=== PATIENT | male | born 1955 | race Caucasian/White ===

== ENCOUNTER 2022-12-30 13:47 | Outpatient (CLI) | payer MEDICARE, SELFPAY ==
--- NOTE | 2022-12-30 14:30 | CRLHL7_ITS ---
For Patients: As a result of the Century Cures Act, medical imaging exams and procedure reports are released immediately into your electronic medical record. You may view this report before your referring provider. If you have questions, please contact your health care provider. DXA BONE MINERAL DENSITY STUDY Reason for exam: Primary malignant neoplasm of prostate. Screening. Current height (in): 69. Weight (lb): 270. Menopause age: N/A Ethnicity: White. 1. Have you had a previous hip or vertebral fracture? No. 2. Have you had any fractures during your adult life which did not result from significant trauma (e.g., auto accident)? No. 3. Did either of your parents have a hip fracture? No. 4. Do you smoke? No. 5. Have you ever taken Glucocorticoids? No. 6. Do you have rheumatoid arthritis? No. 7. Do you have secondary osteoporosis? No. 8. Do you drink 3 or more alcoholic drinks per day? No. 9. Are you being treated for osteoporosis? No. 10. Have you ever taken any of the following medications: Actonel, Evista, Fosamax, Miacalcin, Reclast, Boniva, Forteo, HRT (i.e., estrogen/hormone therapy), Protelos, Prolia, Vitamin D, Calcium, other ??? please specify. ANSWER: No. 11. Do you have any of the following medical conditions: Anorexia or bulimia, asthma or emphysema, end stage renal disease, hyperparathyroidism, any seizure disorders, cancer, inflammatory bowel diseases, hysterectomy, other ??? please specify. ANSWER: Yes, cancer. 12. What was your maximum height (inches)? 69. 13. Do you perform weight bearing exercise regularly? No. 14. Do you regularly consume dairy products? No. 15. Do you drink caffeinated beverages? Yes. TECHNIQUE: Bone mineral density study was performed using the [employer]. FINDINGS: The results of the study expressed as bone mineral density (BMD) are as follows: Lumbar spine L2 to L4: BMD: 1.227 g/cm2. T-score: 1.0. Z-score: 1.9 Neck Left: BMD: 0.754 g/cm2. T-score: -1.3. Z-score: -0.1 Right: BMD: 0.737 g/cm2. T-score: -1.4. Z-score: -0.3 Total Left: BMD: 1.033 g/cm2. T-score: -0.0. Z-score: 0.6 Right: BMD: 0.984 g/cm2. T-score: -0.3. Z-score: 0.3 IMPRESSION: Osteopenia. FRAX 10-year Fracture Risk Major Osteoporotic Fracture: 5.3% Hip Fracture: 0.9% Reported Risk Factors: [place] () Neck BMD=0.737, BMI= 39.9 Tarun Mckeon M.D. Diagnostic Radiologist [email or web address] QUINTON/[email or web address] dang/Dictated by: Tarun Mckeon MD @ 12/31/2022 10:04:00 AM (Electronically Signed)
== END 2022-12-30 13:48 | disposition home or self-care (01) ==
PROVIDERS: PCP Family Medicine; Visit Provider Physician Assistant
DX: Z13.820 Encounter for screening for osteoporosis (principal); M85.89 Other specified disorders of bone density and structure, multiple sites; C61 Malignant neoplasm of prostate
CPT/HCPCS: 77080

== ENCOUNTER 2023-03-05 12:06 | Outpatient (CLI) | payer MEDICARE, SELFPAY | END 2023-03-05 12:07 | disposition home or self-care (01) | LOC: MRI 12:09 | PROVIDERS: PCP Family Medicine; Visit Provider Internal Medicine | DX: C61 Malignant neoplasm of prostate (principal) | CPT/HCPCS: 72195 ==

== ENCOUNTER 2023-04-29 11:00 | Outpatient (RCR) | payer MEDICARE, SELFPAY ==
--- NOTE | 2022-11-26 15:56 | ONC.NURNOTE ---
Dx: Prostate Cancer
--- NOTE | 2022-11-30 13:04 | URNOTE ---
Received request for prior auth for Firmagon (Degarelix) [id number]. Per Varun, this has been approved 11/27/2022- Auth #[id number]
[2022-12-07 09:49] VITALS: BP 130/71; PULSE 62; RESP 16; TEMP 36.1; O2SAT 95
[2022-12-07 10:27] LABS: PSA Diagnostic* 6.22 ng/mL (0.10-4.00)
[2022-12-08 19:00] LABS: Testosterone, Adult Male 254 ng/dL (300-720)
[2023-01-04 11:31] VITALS: BP 134/72; PULSE 57; RESP 18; TEMP 35.8; O2SAT 98
[2023-01-04] MEDS: DEGARELIX ACETATE 80 MG INJ SUBCUT (11:58)
[2023-01-04 12:47] LABS: PSA Diagnostic* 1.44 ng/mL (0.10-4.00)
[2023-01-06 06:29] LABS: Testosterone, Adult Male 10 ng/dL (300-720)
[2023-02-01 11:12] VITALS: BP 122/66; PULSE 66; RESP 16; TEMP 36.6; O2SAT 96
[2023-02-01] MEDS: DEGARELIX ACETATE 80 MG INJ SUBCUT (11:37)
[2023-03-04 14:02] VITALS: BP 117/71; PULSE 62; RESP 16; TEMP 36.6; O2SAT 96
[2023-03-04] MEDS: DEGARELIX ACETATE 80 MG INJ SUBCUT (14:06)
--- NOTE | 2023-03-12 08:10 | URNOTE ---
Prior authorization for Leuprolide ([id number]) has been approved by Varun on behalf of [facility] [place]. 03/10/2023-03/31/2024 Auth #[id number]
[2023-04-01 11:06] VITALS: BP 127/74; PULSE 60; RESP 18; TEMP 36.1; O2SAT 99
[2023-04-01] MEDS: LEUPROLIDE ACETATE 7.5 MG (SQ) SYRINGE SUBCUT (11:20)
--- NOTE | 2023-04-01 11:44 | PC.NURSE ---
Pt present at [facility] for Eligard injection. After administering the injection in the RIGHT lower abdomen a small amount of creamy white liquid evacuated from the injection site. The site also bled. Pt experienced burning pain at the site for about 30-45 seconds. BARBARA Mitchell RN assess the injection site after initial band aid applied and upon assessing the site, RN noted a small fleshy tag/core inside of the injection site. This was removed to assess and make sure it wasn't part of the needle. The site continued to bleed, band aid changed. [facility] Jewelry Bench Worker, Hiwot Morrison RN notified.
[2023-04-29 11:02] VITALS: BP 123/76; PULSE 72; RESP 16; TEMP 35.9; O2SAT 97
[2023-04-29] MEDS: LEUPROLIDE ACETATE 22.5 MG (SQ) SYRINGE SUBCUT (11:28)
[2023-04-29 12:22] LABS: PSA Diagnostic* < 0.06 ng/mL (0.10-4.00)
[2023-05-01 05:38] LABS: Testosterone, Adult Male <3 ng/dL (300-720)
== END 2023-06-05 23:59 | disposition home or self-care (01) ==
LOC: CCIC 11:00
PROVIDERS: Physician Assistant; PCP Family Medicine; Referring Provider Family Medicine; Visit Provider Clinical Nurse Specialist
DX: C61 Malignant neoplasm of prostate (principal)
CPT/HCPCS: 36415; 84153; 84403; 96401; J9155; J9217

== ENCOUNTER 2024-01-07 11:00 | Outpatient (RCR) | payer MEDICARE, SELFPAY ==
[2023-07-22 12:07] VITALS: BP 123/72; PULSE 57; O2SAT 99
[2023-07-22] MEDS: LEUPROLIDE ACETATE 22.5 MG (SQ) SYRINGE SUBCUT (12:13)
[2023-07-22 12:35] LABS: PSA Diagnostic* < 0.06 ng/mL (0.10-4.00)
[2023-07-23 22:33] LABS: Testosterone, Adult Male <3 ng/dL (300-720)
[2023-10-15 11:04] VITALS: BP 122/63; PULSE 63; RESP 17; TEMP 36.2; O2SAT 96
[2023-10-15] MEDS: LEUPROLIDE ACETATE 22.5 MG (SQ) SYRINGE SUBCUT (11:44)
[2023-10-15 12:45] LABS: PSA Diagnostic* < 0.06 ng/mL (0.10-4.00)
[2024-01-07 11:46] VITALS: BP 117/69; PULSE 62; RESP 16; TEMP 36; O2SAT 96
[2024-01-07] MEDS: LEUPROLIDE ACETATE 22.5 MG (SQ) SYRINGE SUBCUT (11:46)
== END 2024-01-18 23:59 | disposition home or self-care (01) ==
LOC: CCIC 11:00
PROVIDERS: PCP Family Medicine; Referring Provider Family Medicine; Visit Provider Clinical Nurse Specialist
DX: C61 Malignant neoplasm of prostate (principal)
CPT/HCPCS: 36415; 84153; 84403; 96401; 96402; J9217